=== PATIENT | female | born 1945 | race Caucasian/White ===

== ENCOUNTER 2016-10-09 23:55 | Inpatient (IN) | payer MEDICARE, OTHER ==
[~2016-10-09 23:55] MED LIST: ARTHRITIS MED PO; CEFDINIR300 MG PO; CHERATUSSIN AC118 ML PO; NORCO 5-325 TA1 EACH PO; PREDNISONE10 MG PO; RECLAST 55 MG/100 M IV; VENTOLIN HFA18 GM IH
[2016-10-10] MEDS ORDERED: CYMBALTA60 M1 PO (01:27)
[2016-10-10] MEDS ORDERED: METHOTREXA25 MG/110 PO (01:28)
[2016-10-10] MEDS ORDERED: CULTURELLE1 EAC1 PO (01:29)
[2016-10-10] MEDS ORDERED: FOLIC ACID1 M1 PO (01:30)
[2016-10-10] MEDS ORDERED: TYLENOL EXTRA500 M1 PO (01:30)
[2016-10-10] MEDS ORDERED: OMEPRAZOLE20 M3 PO (01:31)
[2016-10-10] MEDS ORDERED: BACTRIM 400-801 EAC1 PO (01:32)
[2016-10-10] MEDS ORDERED: NEURONTIN600 M1 PO (01:32)
[2016-10-10] MEDS ORDERED: VANCOMYCIN HCL500 MG PO (01:33)
[2016-10-10 03:02] LABS: BASO % 0.2 % (0-2); EOS % 3.7 % (0-7); EOSINOPHIL ABSOLUTE COUNT 0.5 tho/cmm (0.0-0.7); HCT-HEMATOCRIT 29.3 % (34.0-49.0); HGB-HEMOGLOBIN 9.6 gm/dl (12.0-15.5); IMMATURE GRANULOCYTES ABSOLUTE 0.28 tho/cmm (0-0.03); IMMATURE GRANULOCYTES PERCENT 2.2 % (0-0.3); LYMPH % 6.6 % (20-45); LYMPH ABSOLUTE COUNT 0.9 tho/cmm (0.8-4.5); MCH (MEAN CORPUSCULAR HGB) 30.5 pg (28.0-32.0); MCHC MEAN CORPUSCULAR HGB CONC 32.8 % (32.0-36.0); MEAN PLATELET VOLUME 9.8 cmc (9.4-12.4); MONO % 6.9 % (0-12); MONOCYTE ABSOLUTE COUNT 0.9 tho/cmm (0.0-1.2); NEUTROPHIL ABSOLUTE COUNT 10.4 tho/cmm (1.6-8.0); NEUTROPHIL-AUTOMATED 10.4 tho/cmm (1.6-8.0); NEUTROPHILS % 80.4 % (40-80); PLATELET COUNT 268 tho/cmm (150-450); RED BLOOD COUNT 3.15 mil/cmm (4.00-5.20); RED CELL DISTRIBUTION WIDTH 16.7 % (12.4-16.4); WHITE BLOOD COUNT 12.9 tho/cmm (4.0-10.0)
[2016-10-10 03:08] LABS: INR 1.2 INR (0.9-1.1); PROTHROMBIN TIME 14.5 SECONDS (9.0-13.6)
[2016-10-10 03:19] LABS: ALB/GLOB RATIO 0.4 (0.8-2.0); ALBUMIN 1.9 g/dl (3.5-5.0); ALKALINE PHOSPHATASE 146 U/L (33-138); ALT/SGPT 22 U/L (12-78); ANION GAP 12 mmol/L (0-20); AST/SGOT 18 U/L (10-40); BILIRUBIN,TOTAL 0.5 mg/dl (0-1.5); BLOOD UREA NITROGEN 9 mg/dl (6-24); CALCIUM 7.8 mg/dl (8.5-10.5); CARBON DIOXIDE-VENOUS 24 mmol/L (22-32); CHLORIDE 101 mmol/l (96-110); GLUCOSE 104 mg/dL (70-110); POTASSIUM 4.2 mmol/L (3.7-5.1); SODIUM 133 mmol/L (135-145); eGFR VALUE FOR BLACK 85 mL/Min
[2016-10-10 03:41] LABS: PROCALCITONIN 1.27 ng/ml (0.05-0.09)
[2016-10-11 05:30] LABS: BASO % 0.2 % (0-2); EOS % 3.1 % (0-7); EOSINOPHIL ABSOLUTE COUNT 0.4 tho/cmm (0.0-0.7); HCT-HEMATOCRIT 28.9 % (34.0-49.0); HGB-HEMOGLOBIN 9.6 gm/dl (12.0-15.5); IMMATURE GRANULOCYTES PERCENT 4.2 % (0-0.3); LYMPH % 5.5 % (20-45); LYMPH ABSOLUTE COUNT 0.7 tho/cmm (0.8-4.5); MCH (MEAN CORPUSCULAR HGB) 30.5 pg (28.0-32.0); MCHC MEAN CORPUSCULAR HGB CONC 33.2 % (32.0-36.0); MCV (MEAN CELL VOLUME) 91.7 fl (82.0-96.0); MEAN PLATELET VOLUME 9.6 cmc (9.4-12.4); MONO % 7.6 % (0-12); MONOCYTE ABSOLUTE COUNT 0.9 tho/cmm (0.0-1.2); NEUTROPHIL ABSOLUTE COUNT 9.5 tho/cmm (1.6-8.0); NEUTROPHIL-AUTOMATED 9.5 tho/cmm (1.6-8.0); NEUTROPHILS % 79.4 % (40-80); PLATELET COUNT 325 tho/cmm (150-450); RED BLOOD COUNT 3.15 mil/cmm (4.00-5.20); RED CELL DISTRIBUTION WIDTH 16.5 % (12.4-16.4)
[2016-10-11 05:40] LABS: ANION GAP 12 mmol/L (0-20); BLOOD UREA NITROGEN 5 mg/dl (6-24); CALCIUM 7.8 mg/dl (8.5-10.5); CARBON DIOXIDE-VENOUS 22 mmol/L (22-32); CHLORIDE 107 mmol/l (96-110); CREATININE 0.69 mg/dl (0.50-1.10); GLUCOSE 102 mg/dL (70-110); POTASSIUM 3.7 mmol/L (3.7-5.1); SODIUM 137 mmol/L (135-145); eGFR VALUE FOR BLACK >90 mL/Min
[2016-10-13 05:19] LABS: HCT-HEMATOCRIT 30.9 % (34.0-49.0); HGB-HEMOGLOBIN 10.2 gm/dl (12.0-15.5); MCH (MEAN CORPUSCULAR HGB) 29.8 pg (28.0-32.0); MCV (MEAN CELL VOLUME) 90.4 fl (82.0-96.0); MEAN PLATELET VOLUME 9.6 cmc (9.4-12.4); RED BLOOD COUNT 3.42 mil/cmm (4.00-5.20); RED CELL DISTRIBUTION WIDTH 16.7 % (12.4-16.4); WHITE BLOOD COUNT 15.5 tho/cmm (4.0-10.0)
[2016-10-13 05:26] LABS: PLATELET COUNT 520 tho/cmm (150-450)
[2016-10-13 05:28] LABS: ANION GAP 15 mmol/L (0-20); BLOOD UREA NITROGEN 3 mg/dl (6-24); CALCIUM 8.1 mg/dl (8.5-10.5); CARBON DIOXIDE-VENOUS 21 mmol/L (22-32); CHLORIDE 103 mmol/l (96-110); CREATININE 0.41 mg/dl (0.50-1.10); GLUCOSE 97 mg/dL (70-110); MAGNESIUM 1.8 mg/dl (1.8-2.6); SODIUM 136 mmol/L (135-145); eGFR VALUE FOR BLACK >90 mL/Min
[2016-10-13 07:12] LABS: BAND % 18 % (0-20); BAND ABSOLUTE COUNT 2.8 tho/cmm (0-2.0); EOSINOPHIL % 3 % (0-7)
[2016-10-13 07:14] LABS: WBC MORPHOLOGY TOXIC GRANULATION
[2016-10-14 05:42] LABS: HCT-HEMATOCRIT 28.4 % (34.0-49.0); HGB-HEMOGLOBIN 9.4 gm/dl (12.0-15.5); MCH (MEAN CORPUSCULAR HGB) 29.8 pg (28.0-32.0); MCHC MEAN CORPUSCULAR HGB CONC 33.1 % (32.0-36.0); MCV (MEAN CELL VOLUME) 90.2 fl (82.0-96.0); MEAN PLATELET VOLUME 9.2 cmc (9.4-12.4); NEUTROPHIL-AUTOMATED 8.9 tho/cmm (1.6-8.0); PLATELET COUNT 521 tho/cmm (150-450); RED BLOOD COUNT 3.15 mil/cmm (4.00-5.20); WHITE BLOOD COUNT 13.7 tho/cmm (4.0-10.0)
[2016-10-14 05:52] LABS: ANION GAP 13 mmol/L (0-20); BLOOD UREA NITROGEN 3 mg/dl (6-24); CALCIUM 7.9 mg/dl (8.5-10.5); CARBON DIOXIDE-VENOUS 23 mmol/L (22-32); CHLORIDE 107 mmol/l (96-110); GLUCOSE 118 mg/dL (70-110); MAGNESIUM 1.9 mg/dl (1.8-2.6); POTASSIUM 3.1 mmol/L (3.7-5.1); SODIUM 140 mmol/L (135-145); eGFR VALUE FOR BLACK >90 mL/Min
[2016-10-14 05:59] LABS: BASO % 1.2 % (0-2); BASO ABSOLUTE COUNT 0.2 tho/cmm (0.0-0.2); EOS % 1.9 % (0-7); EOSINOPHIL ABSOLUTE COUNT 0.3 tho/cmm (0.0-0.7); IMMATURE GRANULOCYTES ABSOLUTE 1.96 tho/cmm (0-0.03); IMMATURE GRANULOCYTES PERCENT 14.4 % (0-0.3); LYMPH % 7.3 % (20-45); MONOCYTE ABSOLUTE COUNT 1.4 tho/cmm (0.0-1.2); NEUTROPHIL ABSOLUTE COUNT 8.9 tho/cmm (1.6-8.0); NEUTROPHILS % 65.2 % (40-80)
[2016-10-14 06:22] LABS: PROCALCITONIN 0.51 ng/ml (0.05-0.09)
[2016-10-15 05:26] LABS: HCT-HEMATOCRIT 28.8 % (34.0-49.0); HGB-HEMOGLOBIN 9.4 gm/dl (12.0-15.5); MCH (MEAN CORPUSCULAR HGB) 29.8 pg (28.0-32.0); MCHC MEAN CORPUSCULAR HGB CONC 32.6 % (32.0-36.0); MCV (MEAN CELL VOLUME) 91.4 fl (82.0-96.0); MEAN PLATELET VOLUME 9.4 cmc (9.4-12.4); NEUTROPHIL-AUTOMATED 9.5 tho/cmm (1.6-8.0); PLATELET COUNT 550 tho/cmm (150-450); RED BLOOD COUNT 3.15 mil/cmm (4.00-5.20); RED CELL DISTRIBUTION WIDTH 17.3 % (12.4-16.4); WHITE BLOOD COUNT 14.8 tho/cmm (4.0-10.0)
[2016-10-15 05:28] LABS: BASO % 0.9 % (0-2); BASO ABSOLUTE COUNT 0.1 tho/cmm (0.0-0.2); EOS % 1.3 % (0-7); EOSINOPHIL ABSOLUTE COUNT 0.2 tho/cmm (0.0-0.7); IMMATURE GRANULOCYTES ABSOLUTE 2.21 tho/cmm (0-0.03); IMMATURE GRANULOCYTES PERCENT 14.9 % (0-0.3); LYMPH % 8.4 % (20-45); LYMPH ABSOLUTE COUNT 1.3 tho/cmm (0.8-4.5); MONO % 10.3 % (0-12); MONOCYTE ABSOLUTE COUNT 1.5 tho/cmm (0.0-1.2); NEUTROPHIL ABSOLUTE COUNT 9.5 tho/cmm (1.6-8.0); NEUTROPHILS % 64.2 % (40-80)
[2016-10-15 06:58] LABS: WBC MORPHOLOGY TOXIC GRANULATION
[2016-10-15] MEDS ORDERED: VANCOMYCIN500 MG/VIA PO (12:12)
[2016-10-15] MEDS ORDERED: BENTYL10 M1 PO (12:13)
[2016-10-15] MEDS ORDERED: TYLENOL325 M2 PO (12:15)
[2016-10-15] MEDS ORDERED: POTASSIUM CHLO20 ME3 PO (12:16)
[2016-10-15] MEDS ORDERED: METHOTREXA25 MG/110 PO (13:45)
== END 2016-10-15 14:36 | DRG 871 ==
LOC: PCUA 23:55
PROVIDERS: Internal Medicine; Internal Medicine Critical Care Medicine; ADMIT Internal Medicine
PROC: 05HB33Z Insertion of Infusion Device into Right Basilic Vein, Percutaneous Approach (ICD-10-PCS; principal; 2016-10-11)
DX: A41.9 Sepsis, unspecified organism (principal); J96.01 Acute respiratory failure with hypoxia; J90 Pleural effusion, not elsewhere classified; A04.7 Enterocolitis due to Clostridium difficile; N39.0 Urinary tract infection, site not specified; J98.11 Atelectasis; G62.9 Polyneuropathy, unspecified; R65.20 Severe sepsis without septic shock; B34.8 Other viral infections of unspecified site; Z87.81 Personal history of (healed) traumatic fracture; Z90.49 Acquired absence of other specified parts of digestive tract; Z87.19 Personal history of other diseases of the digestive system; Z98.890 Other specified postprocedural states; M06.9 Rheumatoid arthritis, unspecified; Z79.899 Other long term (current) drug therapy; F32.9 Major depressive disorder, single episode, unspecified; M81.0 Age-related osteoporosis without current pathological fracture; D64.9 Anemia, unspecified; Z88.1 Allergy status to other antibiotic agents
CPT/HCPCS: C1751; J1650; J2543; J3370; J3475; J7030; J7050